=== PATIENT | male | born 1945 | race Caucasian/White ===

== ENCOUNTER 2021-08-20 23:19 | Inpatient (IN) | payer MEDICARE ==
[2021-08-20 23:49] LABS: Blood Gas Oxyhemoglobin 95.5 % (94-97); Blood O2 Saturation 98.5 % (92-98.5)
[2021-08-20] MEDS ORDERED: METHYLPREDNISOLONE 125 MG INJ ONE (23:53)
[2021-08-20] MEDS ORDERED: NA CHLORIDE 0.9% 500 ML ONE (23:59)
--- NOTE | 2021-08-21 00:35 | EDPHYS ---
Physician Documentation [facility] Name: Otf Harry Age: 76 yrs Sex: Male : 1945 Arrival Date: 08/20/2021 Time: 23:19 Bed 2 Private MD: ED Physician Héctor Callejas HPI: 08/21 00:28 This 76 yrs old Male presents to ER via Wheelchair with complaints of Shortness Of kdr Breath. 00:28 The patient has shortness of breath at rest, with light activity. Onset: The kdr symptoms/episode began/occurred suddenly, just prior to arrival. Duration: The symptoms are continuous, and are unchanged since they started. The patient's shortness of breath is aggravated by Movement. Associated signs and symptoms: Pertinent positives: diaphoresis. Severity of symptoms: At their worst the symptoms were mild moderate in the emergency department the symptoms are unchanged. The patient has not experienced similar symptoms in the past. Patient was discharged from [facility] about 10 days ago status post pneumonia/Covid. Daughters present at bedside at time of initial presentation. She indicated that the patient had been doing fine since his discharge from [facility] about 10 days ago. Denies ever giving him a sponge bath and when they rolled onto one side he became abruptly short of breath. Since then he has continued to be short of breath without any relief or significant improvement. Historical: - Allergies: 08/20 23:37 No Known Allergies; kamini - Home Meds: 23:44 Eliquis DVT-PE Treat 30D Start 5 mg (74 tabs) oral DsPk [Active]; amlodipine 10 mg tab kamini 1 tab once daily [Active]; furosemide 20 mg Oral tab 2 tabs once daily [Active]; lisinopril 10 mg Oral tab 1 tab once daily [Active]; levofloxacin 250 mg Oral tab 1 tab once daily [Active]; carvedilol 12.5 mg oral tab 1 tab every 12 hours [Active]; potassium chloride 15 mEq Oral TbTQ 1 tab once daily [Active]; - PMHx: 23:37 Chronic obstructive lung disease; Diabetes mellitus; Cerebrovascular accident; kamini - PSHx: 23:37 Vasectomy; Operative procedure on knee; kamini - Immunization history:: Prior Covid admission, but not vaccinated. - Social history:: Smoking status: Patient reports the use of cigarette tobacco products, denies chronic smoking, but will smoke occasionally. - Family history:: Mother has/had Pneumonia. Father has/had "Something in his lungs from an explosion". - Code Status:: Full code. - History obtained from: daughter. - Unable to obtain history due to: baseline dementia. - Coronavirus screen:: The patient has NOT traveled to [place] in the past 14 days. The patient HAS HAD contact with known and/or suspected case of coronavirus. Pt dc'd from [facility] 10 days ago, having being admitted for Covid. . - Ebola Screening: : Patient negative for fever greater than or equal to 101.5 degrees Fahrenheit, and additional compatible Ebola Virus Disease symptoms Patient denies exposure to infectious person Patient denies travel to an Ebola-affected area in the 21 days before illness onset No symptoms or risks identified at this time. ROS: 08/21 00:28 Constitutional: Negative for fever, chills, and weight loss, Eyes: Negative for injury, kdr pain, redness, and discharge, ENT: Negative for injury, pain, and discharge, Neck: Negative for injury, pain, and swelling, Cardiovascular: Negative for chest pain, palpitations, and edema, Abdomen/GI: Negative for abdominal pain, nausea, vomiting, diarrhea, and constipation, Back: Negative for injury and pain, : Negative for injury, bleeding, discharge, and swelling, MS/Extremity: Negative for injury and deformity, Skin: Negative for injury, rash, and discoloration, Neuro: Negative for headache, weakness, numbness, tingling, and seizure activity. Psych: Negative for depression, anxiety, suicide ideation, homicidal ideation, and hallucinations, Allergy/Immunology: Negative for hives, rash, and allergies, Endocrine: Negative for neck swelling, polydipsia, polyuria, polyphagia, and marked weight changes, Hematologic/Lymphatic: Negative for swollen nodes, abnormal bleeding, and unusual bruising. Respiratory: Positive for dyspnea on exertion, shortness of breath, at rest. Negative for hemoptysis. Exam: 00:28 Constitutional: This is a well developed, well nourished patient who is awake, alert, kdr and in mild distress. Head/Face: Normocephalic, atraumatic. Eyes: Pupils equal round and reactive to light, extra-ocular motions intact. Lids and lashes normal. Conjunctiva and sclera are non-icteric and not injected. Cornea within normal limits. Periorbital areas with no swelling, redness, or edema. Neck: Trachea midline, no thyromegaly or masses palpated, and no cervical lymphadenopathy. Supple, full range of motion without nuchal rigidity, or vertebral point tenderness. No Meningismus. Chest/axilla: Normal chest wall appearance and motion. Nontender with no deformity. No lesions are appreciated. Abdomen/GI: Soft, non-tender, with normal bowel sounds. No distension or tympany. No guarding or rebound. No evidence of tenderness throughout. Back: No spinal tenderness. No costovertebral tenderness. Full range of motion. MS/ Extremity: Pulses equal, no cyanosis. Neurovascular intact. Full, normal range of motion. Neuro: Awake and alert, GCS 15, oriented to person, place, time, and situation. Cranial nerves II-XII grossly intact. Motor strength 5/5 in all extremities. Sensory grossly intact. Cerebellar exam normal. Normal gait. Psych: Awake, alert, with orientation to person, place and time. Behavior, mood, and affect are within normal limits. 00:28 Cardiovascular: Rate: tachycardic, actual rate is 112 bpm, Rhythm: regular, Pulses: no pulse deficits are appreciated, Edema: is not appreciated. 00:28 Respiratory: moderate respiratory distress is noted, Respirations: labored breathing, that is mild, that is moderate, Breath sounds: rales, that are moderate, bronchial sounds, that are mild, + upper airway congestion. Coarse raspy breath sounds bilaterally with overall poor air movement. 02:16 ECG was reviewed by the Attending Physician. kdr Vital Signs: 08/20 23:30 BP 109 / 69; Pulse 111; Resp 40; kamini 23:59 BP 81 / 69; Pulse 105; Resp 34; Weight 71.67 kg; Height 5 ft. 9 in. (175.26 cm); kamini 08/21 00:19 BP 95 / 76; Pulse 101; Resp 29; Pulse Ox 100% ; kamini 00:49 BP 116 / 76; Pulse 102; Resp 34; Pulse Ox 100% ; kamini 01:13 BP 86 / 73; Pulse 105; Resp 34; Pulse Ox 100% ; kamini 03:19 BP 118 / 69; Pulse 82; Resp 20; Pulse Ox 99% ; tw5 08/20 23:59 Body Mass Index 23.33 (71.67 kg, 175.26 cm) kamini MDM: 00:28 Data reviewed: vital signs, nurses notes, lab test result(s), EKG, radiologic studies. kdr Counseling: I had a detailed discussion with the patient and/or guardian regarding: the historical points, exam findings, and any diagnostic results supporting the discharge/admit diagnosis, lab results, radiology results, the need for further work-up and treatment in the hospital. 00:34 Patient medically screened. kdr 08/20 23:25 Order name: BMP la1 08/20 23:25 Order name: Blood Culture Adult (2) la08/20 23:25 Order name: CBC with Diff la08/20 23:25 Order name: CPK la08/20 23:25 Order name: Ckmb la08/20 23:25 Order name: D-Dimer; Complete Time: 02:10 la08/20 23:25 Order name: Hepatic Function; Complete Time: 02:10 la08/20 23:25 Order name: Lipase; Complete Time: 02:10 la08/20 23:25 Order name: Magnesium; Complete Time: 02:10 la08/20 23:25 Order name: NT PRO-BNP; Complete Time: 02:10 la08/20 23:25 Order name: PT-INR; Complete Time: 02:10 la08/20 23:25 Order name: Ptt, Activated; Complete Time: 02:10 la08/20 23:25 Order name: Troponin (emerg Dept Use Only); Complete Time: 02:10 08/20 23:25 Order name: COVID-19 SARS RT PCR (Document "Date of Onset" if Symptomatic); Complete la Time: 04:34 08/20 23:25 Order name: XRAY CXR (1 view) la08/20 23:26 Order name: CRP; Complete Time: 02:10 la08/20 23:26 Order name: Basic Metabolic Panel; Complete Time: 02:10 EDMS 08/20 23:26 Order name: Procalcitonin; Complete Time: 04:34 la08/20 23:26 Order name: Blood Culture EDMI 08/20 23:26 Order name: CBC with Automated Diff; Complete Time: 04:34 EDMS 08/20 23:26 Order name: Creatine Phosphokinase; Complete Time: 02:10 EDMS 08/20 23:26 Order name: CKMB Creatine Kinase MB; Complete Time: 02:10 EDMS 08/20 23:27 Order name: Lactate; Complete Time: 02:10 la1 08/20 23:29 Order name: BIPAP la1 08/20 23:39 Order name: ABG; Complete Time: 00:05 la1 08/21 01:15 Order name: Manual Differential; Complete Time: 04:34 EDMS 08/21 02:10 Order name: CT Chest For PE Angio kdr 08/20 23:25 Order name: EKG; Complete Time: 23:27 la1 08/20 23:25 Order name: Cardiac monitoring; Complete Time: 23:56 la1 08/20 23:25 Order name: EKG - Nurse/Tech; Complete Time: 23:56 la1 08/20 23:25 Order name: IV Saline Lock; Complete Time: 23:56 la1 08/20 23:25 Order name: Labs collected and sent; Complete Time: 23:56 la1 08/20 23:25 Order name: O2 Per Protocol; Complete Time: 23:56 la1 08/20 23:25 Order name: O2 Sat Monitoring; Complete Time: 23:56 la1 EC:16 Rate is 109 beats/min. Rhythm is irregular, Sinus arrythmia with PACs. QRS Hardin is kdr Normal. ID interval is normal. QRS interval is normal. QT interval is normal. Clinical impression: No branch block with pulmonary disease pattern/COPD. Administered Medications: 08/20 23:56 Drug: SOLU-Medrol (methylPrednisoLONE) 125 mg Route: IVP; Site: right antecubital; 08/21 01:50 Follow up: Response: No adverse reaction 00:03 Drug: NS 0.9% 500 ml Route: IV; Rate: bolus; Site: right antecubital; 01:51 Follow up: IV Status: Completed infusion 01:11 Not Given (Hemodynamic Parameters): morphine 2 mg IVP once; RASS on ADMIN: Combtv4, tw5 Very Agttd3, Agttd2, Rstlss1, AlertClm0, Drwsy-1, Lt Sdtn-2, Mod Sdtn-3, Dp Sdtn-4, UnArsble-5 01:14 Drug: NS 0.9% 500 ml Route: IV; Rate: bolus; Site: right antecubital; as6 01:52 Follow up: IV Status: Completed infusion tw5 01:15 Drug: Tylenol 650 mg Route: PO; kamini 01:51 Follow up: Response: No adverse reaction; RASS: Restless (+1) tw5 01:45 Drug: Rocephin (cefTRIAXone) 1 grams {Note: over an hour.} Route: IV; Rate: calculated rate; Site: right antecubital; 02:05 Follow up: Response: No adverse reaction tw 02:06 Follow up: IV Status: Completed infusion tw 02:04 Drug: Zithromax (azithromycin) 500 mg Route: IVPB; Infused Over: 1 hrs; Site: right tw5 antecubital; 03:24 Follow up: IV Status: Completed infusion tw Disposition Summary: 08/21/21 00:34 Hospitalization Ordered Hospitalization Status: Observation kdr Provider: Lester Sher kdr Location: Telemetry/MedSurg (observation) kdr Condition: Fair kdr Problem: an acute exacerbation kdr Symptoms: have improved kdr Bed/Room Type: Standard kdr Room Assignment: 206(08/21/21 03:01) mw Diagnosis - COPD/ Chronic obstructive pulmonary disease with (acute) exacerbation kdr - Other pneumonia, unspecified organism kdr Forms: - Medication Reconciliation Form kdr - SBAR form kdr Signatures: Dispatcher [employer] EDSobeida Kovacs RN RN mw Rittger, Kevin, MD MD kdr Corky Rangel FNP-C [employer]-Riley1 Kim Polanco tw5 Joshua Pierre RN RN as6 Ashley Smith RN RN kamini Corrections: (The following items were deleted from the chart) 03:01 00:34 kdr mw
--- NOTE | 2021-08-21 00:35 | ER ---
Nurse's Notes [facility] Name: Otf Harry Age: 76 yrs Sex: Male : 1945 Arrival Date: 08/20/2021 Time: 23:19 Bed 2 Private MD: Diagnosis: COPD/ Chronic obstructive pulmonary disease with (acute) exacerbation;Other pneumonia, unspecified organism Presentation: 08/20 23:30 Chief complaint: Patient's son or daughter states: Per the pt's daughter,"He has just kamini been discharged from [place]...10 days ago...they said he was over Covid...but I turned him tonight and he got really short of breath...". Coronavirus screen: Client presents with at least one sign or symptom that may indicate coronavirus-19. Standard/surgical mask placed on the client. Provider contacted for isolation considerations. Ebola Screen: Patient negative for fever greater than or equal to 101.5 degrees Fahrenheit, and additional compatible Ebola Virus Disease symptoms Patient denies exposure to infectious person. Patient denies travel to an Ebola-affected area in the 21 days before illness onset. Initial Sepsis Screen: Does the patient meet any 2 criteria? RR > 20 per min. No. Patient's initial sepsis screen is negative. Does the patient have a suspected source of infection? Yes: Productive cough/pneumonia Skin breakdown/wound. 23:30 Method Of Arrival: Wheelchair kamini 23:34 Risk Assessment: Do you want to hurt yourself or someone else? Patient reports no kamini desire to harm self or others. Onset of symptoms was August 20, 2021 at 23:00. Care prior to arrival: None. Activity prior to arrival: confused, Hyperventilating, incontinence. Mechanism of Injury: No Mechanism of Injury. 23:34 Acuity: TIM 2 kamini Triage Assessment: 23:44 General: Appears distressed, unkempt, Behavior is agitated, restless, Smells of kamini Unclean. Pain: Complains of pain in "All over". EENT: Reports Parent/caregiver reports the patient having. Neuro: No deficits noted. Cardiovascular: Rhythm is sinus tachycardia EKG done at 2323. Respiratory: Patient placed on BiPAP: Respiratory Rate: 34. GI: Abdomen is Hernia Last BM. : Incontinent of bowel and bladder. Musculoskeletal: Parent/caregiver report the patient having weakness in left arm and left leg weakness per daughter's report. Injury Description: dressing to right foot. 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 Start 5 mg (74 tabs) oral DsPk [Active]; amlodipine 10 mg tab kamini 1 tab once daily [Active]; furosemide 20 mg Oral tab 2 tabs once daily [Active]; lisinopril 10 mg Oral tab 1 tab once daily [Active]; levofloxacin 250 mg Oral tab 1 tab once daily [Active]; carvedilol 12.5 mg oral tab 1 tab every 12 hours [Active]; potassium chloride 15 mEq Oral TbTQ 1 tab once daily [Active]; - PMHx: 23:37 Chronic obstructive lung disease; Diabetes mellitus; Cerebrovascular accident; kamini - PSHx: 23:37 Vasectomy; Operative procedure on knee; kamini - Immunization history:: Prior Covid admission, but not vaccinated. - Social history:: Smoking status: Patient reports the use of cigarette tobacco products, denies chronic smoking, but will smoke occasionally. - Family history:: Mother has/had Pneumonia. Father has/had "Something in his lungs from an explosion". - Code Status:: Full code. - History obtained from: daughter. - Unable to obtain history due to: baseline dementia. - Coronavirus screen:: The patient has NOT traveled to [place] in the past 14 days. The patient HAS HAD contact with known and/or suspected case of coronavirus. Pt dc'd from [facility] 10 days ago, having being admitted for Covid. . - Ebola Screening: : Patient negative for fever greater than or equal to 101.5 degrees Fahrenheit, and additional compatible Ebola Virus Disease symptoms Patient denies exposure to infectious person Patient denies travel to an Ebola-affected area in the 21 days before illness onset No symptoms or risks identified at this time. Screenin/21 00:18 Abuse screen: Denies threats or abuse. Denies injuries from another. Nutritional kamini screening: No deficits noted. Tuberculosis screening: No symptoms or risk factors identified. Fall Risk Gait- Normal/Bed Rest/Wheelchair (0 pts) Mental Status- Total Kirkpatrick Fall Scale indicates No Risk (0-24 pts). Assessment: 00:18 Respiratory: Patient placed on BiPAP:. kamini 00:21 Respiratory: Airway is patent Respiratory effort is labored, with nasal flaring, Breath kamini sounds are diminished in Diminilshed throughout. Derm: Skin is thin, with poor turgor has skin tears on left elblow Skin is Skin is chaffing to inner thighs and mottling to buttocks and hips. Pt was found to be soiled with stool and not clean. The pt's daughter reports that the "butt cream" was "taking his skin off". Per her report, her nephew was to be "taking care" of the pt, but "that's why we're here". 01:07 GI: kamini 01:07 General: Mirna [phone]. kamini 01:14 Cardiovascular: Rhythm is sinus tachycardia. kamini 03:13 Reassessment: Pt passed impaction that was larger than a baseball and his excoriated tw5 skin, was cleaned. The pt has breakdown to his uncircumcised penis, as well. The pt reports that he "feels better" and is now on 8L O2 and the Bipap has been stopped. Vital Signs: 08/20 23:30 BP 109 / 69; Pulse 111; Resp 40; kamini 23:59 BP 81 / 69; Pulse 105; Resp 34; Weight 71.67 kg; Height 5 ft. 9 in. (175.26 cm); kamini 12/ 00:19 BP 95 / 76; Pulse 101; Resp 29; Pulse Ox 100% ; kamini 00:49 BP 116 / 76; Pulse 102; Resp 34; Pulse Ox 100% ; kamini 01:13 BP 86 / 73; Pulse 105; Resp 34; Pulse Ox 100% ; kamini 03:19 BP 118 / 69; Pulse 82; Resp 20; Pulse Ox 99% ; tw5 12 23:59 Body Mass Index 23.33 (71.67 kg, 175.26 cm) kamini Vitals: 03:13 Cardiac Rhythm Assessment Regular Other HR is 82, now. tw5 ED Course: 08/20 23:19 Patient arrived in ED. bp1 23:20 Kaylynn Schumacher, MIGUEL is Primary Nurse. sm5 23:29 Héctor Callejas MD is Attending Physician. kdr 23:30 Ashley Smith RN is Primary Nurse. kamini 23:37 Triage completed. kamini 23:52 XRAY CXR (1 view) In Process Unspecified. EDMS 23:56 Inserted saline lock: 20 gauge in right antecubital area, using aseptic technique. tw5 Blood collected. 23:59 Arm band placed on. EKG completed in triage. Results shown to . kamini 08/21 00:33 Lester Sher DO is Hospitalizing Provider. kdr 00:50 Lab at bedside for a redraw of labs. kamini 01:16 Patient has correct armband on for positive identification. Bed in low position. Call kamini light in reach. Side rails up X2. Adult w/ patient. rotary drill operator on. Pulse ox on. NIBP on. PO fluids given. Verbal reassurance given. Cleaned of incontinence. 01:18 The pt's daughter left her number with us and has gone home, with her young daughter. kamini 01:18 No provider procedures requiring assistance completed. O2 via Cpap Response to oxygen kamini therapy: Much less restless. 01:48 BMP Sent. tw5 01:48 Blood Culture Adult (2) Sent. tw5 01:48 COVID-19 SARS RT PCR (Document "Date of Onset" if Symptomatic) Sent. tw5 01:48 CBC with Diff Sent. tw5 01:48 CPK Sent. tw5 01:48 Ckmb Sent. tw5 01:48 D-Dimer Sent. tw5 01:48 PT-INR Sent. tw5 01:48 Ptt, Activated Sent. tw5 01:49 Blood Culture Sent. tw5 01:49 Procalcitonin Sent. tw5 01:49 CBC with Automated Diff Sent. tw5 01:50 Lactate Sent. tw5 01:53 Manual Differential Sent. tw5 02:07 Notified the Hospitalist of a critical lab result(s), D dimer 20,865. tw5 02:[address] Respiratory called to accompany the pt, due to the Bipap. tw5 03:13 Patient admitted, IV remains in place. Wound care: located on buttocks and jimi area. tw5 03:13 Report given to to MIGUEL Yap, on 2nd floor. The pt is going to room 206. tw5 Administered Medications: 08/20 23:56 Drug: SOLU-Medrol (methylPrednisoLONE) 125 mg Route: IVP; Site: right antecubital; tw5 08/21 01:50 Follow up: Response: No adverse reaction tw5 00:03 Drug: NS 0.9% 500 ml Route: IV; Rate: bolus; Site: right antecubital; tw5 01:51 Follow up: IV Status: Completed infusion tw 01:11 Not Given (Hemodynamic Parameters): morphine 2 mg IVP once; RASS on ADMIN: Combtv4, tw5 Very Agttd3, Agttd2, Rstlss1, AlertClm0, Drwsy-1, Lt Sdtn-2, Mod Sdtn-3, Dp Sdtn-4, UnArsble-5 01:14 Drug: NS 0.9% 500 ml Route: IV; Rate: bolus; Site: right antecubital; as6 01:52 Follow up: IV Status: Completed infusion tw 01:15 Drug: Tylenol 650 mg Route: PO; kamini 01:51 Follow up: Response: No adverse reaction; RASS: Restless (+1) 01:45 Drug: Rocephin (cefTRIAXone) 1 grams {Note: over an hour.} Route: IV; Rate: calculated rate; Site: right antecubital; 02:05 Follow up: Response: No adverse reaction 02:06 Follow up: IV Status: Completed infusion tw 02:04 Drug: Zithromax (azithromycin) 500 mg Route: IVPB; Infused Over: 1 hrs; Site: right tw5 antecubital; 03:24 Follow up: IV Status: Completed infusion Outcome: 00:34 Decision to Hospitalize by Provider. kdr 03:13 Admitted to Med/surg accompanied by nurse, via stretcher, room 206, with oxygen, Report tw5 called to Marely and pt going to 206 03:13 Condition: stable 03:25 Patient left the ED. tw5 Signatures: Dispatcher [employer] EDMS Héctor Callejas MD MD kdr [place], Brittany bp1 Wood, Tiffany tw5 Joshua Pierre, MIGUEL RIVERA as6 Kaylynn Schumacher RN RN 5 Ashley Smith RN RN kamini
[2021-08-21] MEDS ORDERED: MORPHINE 2 MG/ML SYR ONE (01:04)
[2021-08-21] MEDS ORDERED: ACETAMINOPHEN 325 MG TABLET ONE (01:05)
[2021-08-21 01:12] LABS: Absolute Lymphocytes (CBC) 1.2 K/uL (0.7-4.9); Hematocrit 44.2 % (39.6-49.0); Lymphocytes % 6.5 % (15.3-44.8); MPV 7.1 fL (7.6-11.3); RBC Red Blood Cell Count 4.91 M/uL (4.33-5.43)
[2021-08-21] MEDS ORDERED: NA CHLORIDE 0.9% 500 ML ONE (01:12)
[2021-08-21 01:29] LABS: ALT/SGPT 23 U/L (12-78); AST/SGOT 19 U/L (15-37); Albumin 2.3 g/dL (3.4-5.0); Alkaline Phosphatase 145 U/L (45-117); BUN Blood Urea Nitrogen 20 mg/dL (7-18); Bicarbonate 28 mmol/L (21-32); Bilirubin Direct 0.3 mg/dL (0-0.2); Bilirubin Total 0.7 mg/dL (0.2-1.0); C-Reactive Protein 7.15 mg/L (<3.00); CKMB Creatine Kinase MB 1.2 ng/mL (1.0-3.6); Creatine Phosphokinase 40 U/L (39-308); Glucose Level 252 mg/dL (74-106); Lipase 91 U/L (73-393); Magnesium 2.1 mg/dL (1.8-2.4); NT PRO-BNP 639 pg/mL (<125); Potassium 4.5 mmol/L (3.5-5.1); Protein, Total 6.3 g/dL (6.4-8.2); Sodium Level 137 mmol/L (136-145); Troponin (Emerg Dept Use Only) < 0.02 ng/mL (0.0-0.045)
[2021-08-21] MEDS ORDERED: CEFTRIAXONE 1000 MG/VIAL ONE (01:34)
[2021-08-21] MEDS ORDERED: NA CHLORIDE 0.9% 100 ML ONE (01:35)
[2021-08-21] MEDS ORDERED: AZITHROMYCIN 500 MG INJ IVPB ONE (01:56)
[2021-08-21] MEDS ORDERED: NA CHLORIDE 0.9% 250 ML ONE (01:57)
--- NOTE | 2021-08-21 01:58 | P.HP ---
Certification for Inpatient Patient admitted to: Inpatient With expected LOS: >2 Midnights Patient will require the following post-hospital care: None Practitioner: I am a practitioner with admitting privileges, knowledge of patient current condition, hospital course, and medical plan of care. Services: Services provided to patient in accordance with Admission requirements found in Title 42 Section 412.3 of the Code of Federal Regulations Patient History Date of Service: 08/21/21 Primary Care Provider: Dr. Tejada Reason for admission: Pneumonia History of Present Illness: 76-year-old male with history of diabetes mellitus type 2,, COPD, history of CVA presents emergency department for shortness of breath. Family reports that patient was [facility] 10 days ago after being treated for Covid pneumonia, home medications reviewed include Eliquis as well as Levaquin. Patient is very appropriate poor historian and family not available for interview at this time, attempted to call as well but nobody answered. Patient arrived to the emergency department dyspneic, tachypneic and hypoxic with saturations in the mid 80s. Patient was placed on BiPAP and evaluated in the emergency department labs are significant for white blood cell count 18.9 with left shift glucose 252 C- reactive protein 7.15 BNP 639 Covid test is pending chest x-ray appears to demonstrate a right lower lobe pneumonia. Patient given IV Rocephin and Zithromax in the emergency department, this is believed to be more of a bacterial pneumonia than acute Covid, will admit for further evaluation and management. Allergies No Known Allergies Allergy (Unverified 08/21/21 03:08) Home Medications: Amlodipine [Norvasc] 10 mg PO DAILY 08/21/21 Apixaban [Eliquis] 5 mg PO DAILY 08/21/21 Carvedilol [Coreg] 12.5 mg PO BID 08/21/21 Furosemide 40 mg PO DAILY 08/21/21 Lisinopril [Zestril] 10 mg PO DAILY 08/21/21 Potassium Chloride [Klor-Con M15] 15 meq PO DAILY 08/21/21 levoFLOXacin [Levofloxacin] 250 mg PO DAILY 08/21/21 - Past Medical/Surgical History -: COPD -: Diabetes mellitus type 2 -: History of CVA Past Surgical History: Unable to obtain Psychosocial/ Personal History: Per report patient lives with a nephew who attempts to help take care of him but is having difficulty with this. - Family History Father History Unknown: Yes - Social History Smoking Status: Current every day smoker Counseled patient to stop smoking for: less than 10 minutes Smoking therapy provided: No (Patient declined) Place of Residence: Home Review of Systems 10-point ROS is otherwise unremarkable Respiratory: Cough, Shortness of Breath Physical Examination - Physical Exam General: Alert, In no apparent distress, Oriented x2 HEENT: Atraumatic, PERRLA, Mucous membr. moist/pink, EOMI, Sclerae nonicteric Neck: Supple, 2+ carotid pulse no bruit, No LAD, Without JVD or thyroid abnormality Respiratory: Diminished, Crackles/rales, Rhonchi/gurgles, Other (On BiPAP) Cardiovascular: Regular rate/rhythm, Normal S1 S2 Capillary refill: <2 Seconds Gastrointestinal: Normal bowel sounds, No tenderness Musculoskeletal: No tenderness Integumentary: No rashes Neurological: Normal speech, Normal strength at 5/5 x4 extr, Normal tone, Normal affect Lymphatics: No axilla or inguinal lymphadenopathy - Studies Laboratory Data (last 24 hrs) 08/21/21 00:56: WBC 18.90 H, Hgb 14.3, Hct 44.2, Plt Count 374 08/21/21 00:56: Sodium 137, Potassium 4.5, BUN 20 H, Creatinine 0.88, Glucose 252 H, Magnesium 2.1, Total Bilirubin 0.7, AST 19, ALT 23, Alkaline Phosphatase 145 H, Lipase 91 Assessment and Plan - Plan Assessment: Acute hypoxic respiratory failure secondary to right lower lobe pneumonia complicated with history of COPD Diabetes type 2 with hyperglycemia Hypertension Tobacco abuse History of CVA Plan: Acute hypoxic respiratory failure secondary to right lower lobe pneumonia complicated with history of COPD: Per report patient was discharged from [facility] approximate 10 days ago for Covid pneumonia, patient appears to have been prescribed Levaquin unsure if he was taking this on chest x-ray appears to have right lower lobe pneumonia with 18,000 white count believe this is more related to bacterial pneumonia than Covid as CRP is rather low. We will continue with IV antibiotics Rocephin/Zithromax, obtain sputum culture. Pulmonology consulted continue with incentive spirometry. Blood cultures were obtained in the emergency department will continue with IV steroids as well, as needed nebulizer treatments. Covid test negative at this time. Patient also lives at home with a nephew, there are concerns about his living situation in the family but they were unavailable for interview at this time. We will need to discuss further with him, case management social worker consult to be placed as well for possible skilled placement. Diabetes type 2 with hyperglycemia: ACH is Accu-Chek, sliding scale insulin therapy. A1c with morning labs. Hypertension: Blood pressure borderline at this time will hold off on antihypertensive agents. Restart as appropriate Tobacco abuse: Patient admits to smoking but cannot tell me how much, counseled on need for tobacco cessation. History of CVA: Obtain and continue medications, stable at this time. DVT PPX: Continue Eliquis Code status: Full code Discharge Plan: Home Plan to discharge in: Greater than 2 days - Advance Directives Does patient have a Living Will: No Does patient have a Durable POA for Healthcare: No - Code Status/Comfort Care Code Status Assessed: Yes (Full code) Critical Care: No Time Spent Managing Pts Care (In Minutes): 55
[2021-08-21 02:05] LABS: Protime INR 1.16
[2021-08-21 02:12] LABS: Blood Morphology Comment NOT SEEN (NOT SEEN); Platelet Estimate ADEQ
[2021-08-21] MEDS ORDERED: ONDANSETRON 4 MG/2 ML VIAL IV PRN (03:29)
[2021-08-21 04:29] VITALS: BMI 24.2
--- NOTE | 2021-08-21 06:02 | P.PN ---
Subjective Date of Service: 08/21/21 Primary Care Provider: Dr. Tejada Chief Complaint: Pneumonia Subjective: Other (Patient stable at this time. Patient recently hospitalized for Covid. Patient with underlying COPD.) Physical Examination - Vital Signs Temperature: 97.5 F Blood Pressure: 114/57 Pulse: 82 Respirations: 20 Pulse Ox (%): 94 - Studies Laboratory Data (last 24 hrs) 08/21/21 00:56: PT 13.4 H, INR 1.16, APTT 30.6 08/21/21 00:56: WBC 18.90 H, Hgb 14.3, Hct 44.2, Plt Count 374 08/21/21 00:56: Sodium 137, Potassium 4.5, BUN 20 H, Creatinine 0.88, Glucose 252 H, Magnesium 2.1, Total Bilirubin 0.7, AST 19, ALT 23, Alkaline Phosphatase 145 H, Lipase 91 Assessment & Plan Discharge Plan: Other (Home versus skilled placement) Plan to discharge in: 72 Hours Physician Review Additional Text: COVID: Negative CT chest: No evidence of pulmonary embolism or/and significant thoracic aortic dissection. Probable atelectasis posterior segment left lower lobe with elevation of left hemidiaphragm Old granulomatous disease Coronary artery calcification and arthrosclerotic disease of the thoracic aorta. Initial CXR: COMPARISON: none FINDINGS: Mild left basilar atelectasis Lungs are mildly to moderately hyperaerated. The heart is normal size IMPRESSION: COPD Physical exam: General: Alert, In no apparent distress, Oriented x2 HEENT: Neck supple Respiratory: Wheezes bilateral. Currently on oxygen at 4-5 L. Cardiovascular: Regular rate/rhythm, Normal S1 S2 Capillary refill: <2 Seconds Gastrointestinal: Normal bowel sounds, No tenderness Musculoskeletal: No tenderness Integumentary: No rashes Neurological: Normal speech, Normal strength at 5/5 x4 extr, Normal tone, Normal affect Lymphatics: No axilla or inguinal lymphadenopathy Assessment: Acute hypoxic respiratory failure with hypoxia likely COPD exacerbation with possible left lower lobe pneumonia complicated with recent history of Covid Diabetes type 2 with hyperglycemia Hypertension Tobacco abuse History of CVA Plan: Acute hypoxic respiratory failure with hypoxia likely COPD exacerbation with possible left lower lobe pneumonia complicated with recent history of Covid: Procalcitonin slightly elevated. Continue with Rocephin and Zithromax to cover for infectious cause. CT scan shows no evidence of pulmonary embolism. Atelectasis to the left lower lobe noted. Patient recently discharged from [facility] for Covid 10 days ago. Covid test negative at this time. Encourage incentive spirometer. Continue COPD medication including s teroid. Physical therapy to assess ambulation. Patient lives at home with nephew. Family unavailable but it appears that patient may require more help. Consider home health and physical therapy versus skilled placement. Social work to be consulted to help with this. Diabetes type 2 with hyperglycemia: We will check A1c. Continue Accu-Cheks and sliding scale. Hypertension: Blood pressure low at this time. We will hold his medications including amlodipine, carvedilol, and lisinopril. We will also hold his Lasix as well. Tobacco abuse: Continue to provide tobacco cessation. History of CVA: Continue aspirin. No need for Eliquis at this time. Will change to Lovenox. DVT PPX: Lovenox Code status: Full code Advance care planning-30 minutes: We will need to discuss further with family. Consider home health versus skilled placement. Consult physical therapy to assess ambulation. Time Spent Managing Pts Care (In Minutes): 55
--- NOTE | 2021-08-21 07:34 | EKG ---
Test Date: 2021-08-20 Test Time: 23:35:37 Launderette Attendant: TW MEASUREMENT RESULTS: Intervals: Rate: 109 [place]: 148 QRSD: 108 QT: 350 QTc: 471 [place]: P: 89 [place]: 148 QRS: 175 T: 53 INTERPRETIVE STATEMENTS: Sinus tachycardia with premature atrial complexes Pulmonary disease pattern Right bundle branch block Abnormal ECG No previous ECG available for comparison Electronically Signed On 08-21-21 07:34:12 [employer] SHEAR[employer] by Alfred Rick
[2021-08-21] MEDS: ARFORMOTEROL TARTRATE 15 MCG/2 ML VIAL.NEB NEB SCH ×2 (07:59→20:27)
[2021-08-21] MEDS: IPRATROPIUM BROM 0.5MG/2.5ML NEB PRN ×2 (07:59→20:27)
[2021-08-21] MEDS: ALBUTEROL 2.5 MG/3 ML NEB SOL NEB PRN (07:59)
--- NOTE | 2021-08-21 08:30 | RAD REPORT ---
[facility]51 pm CLINICAL HISTORY: Shortness breath COMPARISON: none FINDINGS: Mild left basilar atelectasis Lungs are mildly to moderately hyperaerated. The heart is normal size IMPRESSION: COPD
[2021-08-21] MEDS ORDERED: APIXABAN 5 MG TABLET PO SCH (09:00)
[2021-08-21] MEDS ORDERED: DULERA 200/5 (MOMETASONE/FORMOTEROL) INHALER IH SCH (09:00)
[2021-08-21] MEDS: METHYLPREDNISOLONE 40 MG INJ IV SCH ×2 (09:44→16:48)
[2021-08-21] MEDS: INSULIN -REGULAR HUMAN 50 UNIT/0.5 ML ML SQ SCH ×4 (09:45→22:13)
[2021-08-21] MEDS: ACETAMINOPHEN 500 MG TAB PO PRN ×2 (11:21→18:58)
[2021-08-21] MEDS: LACTOBACILLUS/ACIDOPHILUS TAB PO SCH ×2 (14:13→20:41)
--- NOTE | 2021-08-21 14:49 | RAD REPORT ---
EXAM DESCRIPTION: CT - Chest For Pe Angio - 08/21/2021 6:42 am CLINICAL HISTORY: 76 years, Male, Cough;Congestion COMPARISON: None. TECHNIQUE: Multiple transaxial tomograms of the chest were obtained from the lung apices through the lung bases utilizing 2 mm slice thickness at 2 mm interval reconstruction after the administration o f large bolus of IV contrast at a rate of 4.0 cc per second for complete opacification of the pulmona ry arteries. Subsequent 3-D maximum intensity projection images were generated in the coronal and sagittal plane f or review. This exam was performed according to our departmental dose-optimization protocol, which includes auto mated exposure control, adjustment of the mA and/or kV according to patient size and/or use of iterat jc reconstruction technique. FINDINGS: Several images are compromised by breathing motion artifact. Calcified granuloma within th e right upper lobe. No significant focal areas of calcification. Probable atelectasis posterior segme nt left lower lobe with elevation of the left hemidiaphragm. The trachea mainstem bronchus demonstrate to be normal. There is no significant pericardial or pleura l effusions. The thoracic aorta demonstrate intimal aortic arch calcification. There is no evidence for significan t thoracic aortic dissection and/or aneurysm. The heart is normal in size. No evidence for right vent ricular strain. There are coronary artery calcifications. There is no significant mediastinal and/or hilar lymphadenopathy. The axillary regions demonstrate to be clear. Pulmonary arteries demonstrate to be normal, no intraluminal defect are seen that would suggest pulmo nary embolus. The bone windows demonstrate no significant skeletal lesions. The visualized portions of the upper abdomen demonstrate to be unremarkable. IMPRESSION: No evidence for pulmonary embolism and/or significant thoracic aortic dissection. Probable atelectasis posterior segment left lower lobe with elevation of the left hemidiaphragm. Old granulomatous disease. Coronary artery calcifications and atherosclerotic disease of the thoracic aorta. Electronically signed by: Nahum Olson MD 08/21/2021 4:01 AM DISTRICT AGENT Due to temporary technical issues with the PACS/Fluency reporting system, reports are being signed by the in house radiologists without review as a courtesy to insure prompt reporting. The interpreting radiologist is fully responsible for the content of the report.
[2021-08-21] MEDS: ENOXAPARIN 40 MG/0.4 ML SQ SCH (16:48)
[2021-08-21] MEDS: NYSTATIN PWDR 100000 UNIT/GM TOP SCH (16:48)
[2021-08-21 18:24] LABS: C.diff Antigen/Toxin Ag neg : Tox neg (NEG : NEG)
[2021-08-21] MEDS ORDERED: TRAMADOL HCL 50 MG TAB PO PRN (19:53)
[2021-08-21] MEDS: TRAMADOL HCL 50 MG TAB PO PRN (20:41)
[2021-08-21] MEDS ORDERED: CEFTRIAXONE 1,000 MG in NA CHLORIDE 0.9% 50 ML IVPB SCH (21:00)
[2021-08-21] MEDS ORDERED: AZITHROMYCIN IV 500 MG in NA CHLORIDE 0.9% 250 ML IVPB SCH (21:00)
[2021-08-21] MEDS ORDERED: MORPHINE 2 MG/ML SYR IV PRN (21:56)
[2021-08-22] MEDS: METHYLPREDNISOLONE 40 MG INJ IV SCH ×2 (03:02→09:28)
[2021-08-22] MEDS: TRAMADOL HCL 50 MG TAB PO PRN (03:03)
[2021-08-22 04:58] LABS: Absolute Lymphocytes (CBC) 0.9 K/uL (0.7-4.9); Lymphocytes % 9.3 % (15.3-44.8); MPV 7.1 fL (7.6-11.3); RBC Red Blood Cell Count 3.66 M/uL (4.33-5.43)
[2021-08-22 05:22] LABS: ALT/SGPT 22 U/L (12-78); AST/SGOT 14 U/L (15-37); Alkaline Phosphatase 104 U/L (45-117); BUN Blood Urea Nitrogen 24 mg/dL (7-18); Bicarbonate 27 mmol/L (21-32); Bilirubin Total 0.4 mg/dL (0.2-1.0); Glucose Level 208 mg/dL (74-106); HDL Cholesterol 39 mg/dL (40-60); LDL Cholesterol, Calculated 139 (<130); Magnesium 2.2 mg/dL (1.8-2.4); Potassium 4.3 mmol/L (3.5-5.1); Protein, Total 5.1 g/dL (6.4-8.2); Sodium Level 136 mmol/L (136-145); Thyroid Stimulating Hormone 0.511 uIU/mL (0.360-3.740)
--- NOTE | 2021-08-22 05:55 | P.PN ---
Subjective Date of Service: 08/22/21 Primary Care Provider: Dr. Tejada Chief Complaint: Pneumonia Subjective: Improving, Doing well Physical Examination - Vital Signs Temperature: 98.4 F Blood Pressure: 115/53 Pulse: 92 Respirations: 17 Pulse Ox (%): 95 - Studies Microbiology Data (last 24 hrs): 08/21/21 00:56 Blood - Blood Anaerobic Blood Culture - Final Assessment & Plan Discharge Plan: Other (jail facility) Plan to discharge in: 48 Hours Physician Review Additional Text: COVID: Negative CT chest: No evidence of pulmonary embolism or/and significant thoracic aortic dissection. Probable atelectasis posterior segment left lower lobe with elevation of left hemidiaphragm Old granulomatous disease Coronary artery calcification and arthrosclerotic disease of the thoracic aorta. Initial CXR: COMPARISON: none FINDINGS: Mild left basilar atelectasis Lungs are mildly to moderately hyperaerated. The heart is normal size IMPRESSION: COPD Physical exam: General: Alert, In no apparent distress, Oriented x2 HEENT: Neck supple Respiratory: Breathing improved. Currently on 2 L per nasal cannula. Cardiovascular: Regular rate/rhythm, Normal S1 S2 Capillary refill: <2 Seconds Gastrointestinal: Normal bowel sounds, No tenderness Musculoskeletal: No tenderness Integumentary: No rashes Neurological: Normal speech, Normal strength at 5/5 x4 extr, Normal tone, Normal affect Lymphatics: No axilla or inguinal lymphadenopathy Assessment: Acute hypoxic respiratory failure with hypoxia likely COPD exacerbation with possible left lower lobe pneumonia complicated with recent history of Covid Diabetes type 2 with hyperglycemia Hypertension Tobacco abuse History of CVA Hyperlipidemia Fungal dermatitis Plan: Acute hypoxic respiratory failure with hypoxia likely COPD exacerbation with possible left lower lobe pneumonia complicated with recent history of Covid: Patient has improved. Will transition IV Solu-Medrol to prednisone 20 mg 1 pill twice daily then taper. We will also transition off IV Zithromax and Rocephin to Augmentin twice daily for 7 days. Will provide lactobacillus. Nurses reported some diarrhea. C. difficile culture negative. Will provide medication for diarrhea. Patient stable on 2 L per nasal cannula. Patient will likely require chronic O2. Encourage incentive spirometer. Continue COPD medication. Discontinue IV fluids. We will continue to monitor closely. Social work spoke to family yesterday. Family is pursuing skilled placement for the patient. Await approval. Continue physical therapy today. Left message with daughter. Diabetes type 2 with hyperglycemia: Hemoglobin A1c 7.3. Patient appears to not take any medication at home. Will start Metformin. Continue Accu-Cheks and sliding scale. Hypertension: Blood pressure remains stable off medication. Continue to hold his medications of amlodipine, carvedilol, and lisinopril. We will also hold his Lasix as well. Will need to verify home medication. Tobacco abuse: Continue to provide tobacco cessation. History of CVA: Continue aspirin and folic acid. Continue Lovenox. Hyperlipidemia: LDL 139: We will start Lipitor 10 mg daily Fungal dermatitis: Nurse reported some irritation to the groin area. Likely fungal dermatitis. Will continue with nystatin powder DVT PPX: Lovenox Code status: Full code Advance care planning-30 minutes: Left message with daughter concerning plan of care and to address advanced directives. Social work spoke to daughter yesterday. Plan is for skilled placement. Anticipate improvement over the next several days. Time Spent Managing Pts Care (In Minutes): 55
--- NOTE | 2021-08-22 08:37 | RAD REPORT ---
EXAM DESCRIPTION: RAD - Chest Single View - 08/22/2021 6:03 am CLINICAL HISTORY: follow up pneumonia Chest pain. COMPARISON: Chest Single View dated 08/20/2021; Chest For Pe Angio dated 08/21/2021 FINDINGS: Portable technique limits examination quality. Left lung base infiltrate is present with a small left pleural effusion most compatible with left morris g base pneumonia. This appears progressive since the comparative study. The heart is normal in size. No displaced fractures. IMPRESSION: Mild left lung base pneumonia/infiltrate with small left pleural effusion.
[2021-08-22] MEDS: NYSTATIN PWDR 100000 UNIT/GM TOP SCH ×2 (09:00→20:18)
[2021-08-22] MEDS: ALBUTEROL 2.5 MG/3 ML NEB SOL NEB PRN ×2 (09:10→20:48)
[2021-08-22] MEDS: IPRATROPIUM BROM 0.5MG/2.5ML NEB PRN ×2 (09:10→20:00)
[2021-08-22] MEDS: ARFORMOTEROL TARTRATE 15 MCG/2 ML VIAL.NEB NEB SCH ×2 (09:10→20:00)
[2021-08-22] MEDS ORDERED: LOPERAMIDE HCL 2 MG CAPSULE PO PRN (09:14)
[2021-08-22] MEDS: INSULIN -REGULAR HUMAN 50 UNIT/0.5 ML ML SQ SCH ×4 (09:28→20:18)
[2021-08-22] MEDS: LACTOBACILLUS/ACIDOPHILUS TAB PO SCH ×3 (09:28→20:17)
[2021-08-22] MEDS: METFORMIN HCL 500 MG TAB PO SCH (16:26)
[2021-08-22] MEDS: ENOXAPARIN 40 MG/0.4 ML SQ SCH (16:26)
[2021-08-22] MEDS: ATORVASTATIN 10 MG TAB PO SCH (20:17)
[2021-08-22] MEDS: predniSONE 20 MG TAB PO SCH (20:18)
[2021-08-22] MEDS: AMOX/K CLAV 875 MG TAB PO SCH (20:18)
[2021-08-22] MEDS ORDERED: AMOX/K CLAV 500 MG TAB PO SCH (21:00)
[2021-08-22] MEDS: JUVEN PACKET PO SCH (21:25)
[2021-08-23 05:50] LABS: Absolute Lymphocytes (CBC) 0.8 K/uL (0.7-4.9); Hematocrit 32.9 % (39.6-49.0); Lymphocytes % 9.3 % (15.3-44.8); MPV 6.9 fL (7.6-11.3); RBC Red Blood Cell Count 3.65 M/uL (4.33-5.43)
--- NOTE | 2021-08-23 05:54 | P.PN ---
Subjective Date of Service: 08/23/21 Primary Care Provider: Dr. Tejada Chief Complaint: Pneumonia Subjective: Doing well Physical Examination - Vital Signs Temperature: 97.9 F Blood Pressure: 151/73 Pulse: 70 Respirations: 18 Pulse Ox (%): 98 - Studies Microbiology Data (last 24 hrs): 08/21/21 00:56 Blood - Blood Anaerobic Blood Culture - Final Assessment & Plan Discharge Plan: Other (SNF) Plan to discharge in: 24 Hours Physician Review Additional Text: COVID: Negative CT chest: No evidence of pulmonary embolism or/and significant thoracic aortic dissection. Probable atelectasis posterior segment left lower lobe with elevation of left hemidiaphragm Old granulomatous disease Coronary artery calcification and arthrosclerotic disease of the thoracic aorta. Initial CXR: COMPARISON: none FINDINGS: Mild left basilar atelectasis Lungs are mildly to moderately hyperaerated. The heart is normal size IMPRESSION: COPD Follow up CXR 08/22/2021: COMPARISON: Chest Single View dated 08/20/2021; Chest For Pe Angio dated 08/21/2021 FINDINGS: Portable technique limits examination quality. Left lung base infiltrate is present with a small left pleural effusion most compatible with left lung base pneumonia. This appears progressive since the comparative study. The heart is normal in size. No displaced fractures. IMPRESSION: Mild left lung base pneumonia/infiltrate with small left pleural effusion. Physical exam: General: Alert, In no apparent distress, Oriented x2 HEENT: Neck supple Respiratory: Breathing improved. Currently on 2 L per nasal cannula. Cardiovascular: Regular rate/rhythm, Normal S1 S2 Capillary refill: <2 Seconds Gastrointestinal: Normal bowel sounds, No tenderness Musculoskeletal: No tenderness Integumentary: No rashes Neurological: Normal speech, Normal strength at 5/5 x4 extr, Normal tone, Normal affect Lymphatics: No axilla or inguinal lymphadenopathy Assessment: Acute hypoxic respiratory failure with hypoxia likely COPD exacerbation with possible left lower lobe pneumonia complicated with recent history of Covid Diabetes type 2 with hyperglycemia Hypertension Tobacco abuse History of CVA Hyperlipidemia Fungal dermatitis Plan: Acute hypoxic respiratory failure with hypoxia likely COPD exacerbation with left lower lobe pneumonia and small pleural effusion left complicated with recent history of Covid: Patient overall stable. Continue prednisone. Continue Augmentin. Patient on lactobacillus. Overall improved. at bedside.. C. difficile culture negative. Will provide medication for diarrhea. Patient stable on 2 L per nasal cannula. Patient will likely require chronic O2. Encourage incentive spirometer. Encourage ambulation with physical therapy. Continue COPD medication. Will start low-dose Lasix 20 mg. Spoke with daughter yesterday. Family desires skilled placement for the patient. We will continue to pursue skilled placement. Diabetes type 2 with hyperglycemia: Hemoglobin A1c 7.3. Patient appears to not take any medication at home. Continue Metformin. Continue Accu-Cheks and sliding scale. Hypertension: Blood pressures stable but starting to increase. His medications were held upon admission including Lasix. Patient previously on amlodipine, carvedilol and lisinopril. Will start low-dose lisinopril at this time. Will monitor and adjust medication. Tobacco abuse: Continue to provide tobacco cessation. History of CVA: Continue aspirin and folic acid. Continue Lovenox. Hyperlipidemia: LDL 139: Continue Lipitor 10 mg daily Fungal dermatitis: Nurse reported some irritation to the groin area. Likely fungal dermatitis. Will continue with nystatin powder DVT PPX: Lovenox Code status: Full code Advance care planning-30 minutes: Spoke with daughter at length. Continue to pursue skilled placement. Time Spent Managing Pts Care (In Minutes): 55
[2021-08-23 06:18] LABS: ALT/SGPT 27 U/L (12-78); AST/SGOT 19 U/L (15-37); Albumin 2.1 g/dL (3.4-5.0); Alkaline Phosphatase 90 U/L (45-117); BUN Blood Urea Nitrogen 16 mg/dL (7-18); Bicarbonate 27 mmol/L (21-32); Bilirubin Total 0.6 mg/dL (0.2-1.0); C-Reactive Protein 4.57 mg/L (<3.00); Glucose Level 173 mg/dL (74-106); Magnesium 2.1 mg/dL (1.8-2.4); Potassium 4.3 mmol/L (3.5-5.1); Protein, Total 5.4 g/dL (6.4-8.2); Sodium Level 137 mmol/L (136-145)
[2021-08-23] MEDS: ARFORMOTEROL TARTRATE 15 MCG/2 ML VIAL.NEB NEB SCH ×2 (07:18→20:05)
[2021-08-23] MEDS: INSULIN -REGULAR HUMAN 50 UNIT/0.5 ML ML SQ SCH ×4 (07:30→20:32)
[2021-08-23] MEDS: JUVEN PACKET PO SCH ×2 (08:33→20:30)
[2021-08-23] MEDS: NYSTATIN PWDR 100000 UNIT/GM TOP SCH ×2 (08:34→20:30)
[2021-08-23] MEDS: predniSONE 20 MG TAB PO SCH ×2 (08:41→20:30)
[2021-08-23] MEDS: AMOX/K CLAV 875 MG TAB PO SCH ×2 (08:41→20:29)
[2021-08-23] MEDS: METFORMIN HCL 500 MG TAB PO SCH ×2 (08:41→16:49)
[2021-08-23] MEDS: LACTOBACILLUS/ACIDOPHILUS TAB PO SCH ×3 (08:41→20:30)
[2021-08-23] MEDS: FUROSEMIDE 20 MG TABLET PO SCH (10:58)
[2021-08-23] MEDS: ENOXAPARIN 40 MG/0.4 ML SQ SCH (16:49)
[2021-08-23] MEDS: TRAMADOL HCL 50 MG TAB PO PRN (16:50)
[2021-08-23] MEDS: IPRATROPIUM BROM 0.5MG/2.5ML NEB PRN (20:05)
[2021-08-23] MEDS: ATORVASTATIN 10 MG TAB PO SCH (20:30)
--- NOTE | 2021-08-24 05:55 | P.PN ---
Subjective Date of Service: 08/24/21 Primary Care Provider: Dr. Tejada Chief Complaint: Pneumonia Subjective: Improving, Doing well Physical Examination - Vital Signs Temperature: 97.2 F Blood Pressure: 151/65 Pulse: 71 Respirations: 16 Pulse Ox (%): 95 Assessment & Plan Discharge Plan: Other ([facility] facility) Plan to discharge in: 48 Hours Physician Review Additional Text: COVID: Negative CT chest: No evidence of pulmonary embolism or/and significant thoracic aortic dissection. Probable atelectasis posterior segment left lower lobe with elevation of left hemidiaphragm Old granulomatous disease Coronary artery calcification and arthrosclerotic disease of the thoracic aorta. Initial CXR: COMPARISON: none FINDINGS: Mild left basilar atelectasis Lungs are mildly to moderately hyperaerated. The heart is normal size IMPRESSION: COPD Follow up CXR 08/22/2021: COMPARISON: Chest Single View dated 08/20/2021; Chest For Pe Angio dated 08/21/2021 FINDINGS: Portable technique limits examination quality. Left lung base infiltrate is present with a small left pleural effusion most compatible with left lung base pneumonia. This appears progressive since the comparative study. The heart is normal in size. No displaced fractures. IMPRESSION: Mild left lung base pneumonia/infiltrate with small left pleural effusion. Physical exam: General: Alert, In no apparent distress, Oriented x2 HEENT: Neck supple Respiratory: Breathing improved. Currently on 2 L per nasal cannula. Cardiovascular: Regular rate/rhythm, Normal S1 S2 Capillary refill: <2 Seconds Gastrointestinal: Normal bowel sounds, No tenderness Musculoskeletal: No tenderness Integumentary: No rashes Neurological: Normal speech, Normal strength at 5/5 x4 extr, Normal tone, Normal affect Lymphatics: No axilla or inguinal lymphadenopathy Assessment: Acute hypoxic respiratory failure with hypoxia likely COPD exacerbation with possible left lower lobe pneumonia complicated with recent history of Covid Diabetes type 2 with hyperglycemia Hypertension Tobacco abuse History of CVA Hyperlipidemia Fungal dermatitis Plan: Acute hypoxic respiratory failure with hypoxia likely COPD exacerbation with left lower lobe pneumonia and small pleural effusion left complicated with recent history of Covid: Patient overall stable. No changes noted. at bedside. Continue prednisone. Continue Augmentin. Patient on lactobacillus. Overall improved. at bedside.. C. difficile culture negative. Will provide medication for diarrhea. Patient stable on 2 L per nasal cannula. Patient will likely require chronic O2. Encourage incentive spirometer. Encourage ambulation with physical therapy. Continue COPD medication. Continue Lasix 20 mg. Spoke with . agrees with skilled placement. Social work to help with this. Diabetes type 2 with hyperglycemia: Hemoglobin A1c 7.3. Patient appears to not take any medication at home. Continue Metformin. Continue Accu-Cheks and slid ing scale. Hypertension: Blood pressure improved. His medications were held upon admission including Lasix. Patient previously on amlodipine, carvedilol and lisinopril. Low-dose lisinopril added yesterday. Blood pressure improved.. Will monitor and adjust medication. Tobacco abuse: Continue to provide tobacco cessation. History of CVA: Continue aspirin and folic acid. Continue Lovenox. Hyperlipidemia: LDL 139: Continue Lipitor 10 mg daily Fungal dermatitis: Nurse reported some irritation to the groin area. Likely fungal dermatitis. Will continue with nystatin powder DVT PPX: Lovenox Code status: Full code Advance care planning-30 minutes: Spoke with at length. Spoke with daughter yesterday. Continue to pursue skilled placement. Social work to help with this. Await approval for skilled placement. Time Spent Managing Pts Care (In Minutes): 55
[2021-08-24 06:20] LABS: Absolute Lymphocytes (CBC) 0.9 K/uL (0.7-4.9); Lymphocytes % 12.4 % (15.3-44.8); MPV 6.8 fL (7.6-11.3); RBC Red Blood Cell Count 3.89 M/uL (4.33-5.43)
[2021-08-24 06:38] LABS: ALT/SGPT 45 U/L (12-78); AST/SGOT 33 U/L (15-37); Albumin 2.3 g/dL (3.4-5.0); Alkaline Phosphatase 89 U/L (45-117); BUN Blood Urea Nitrogen 16 mg/dL (7-18); Bicarbonate 28 mmol/L (21-32); Bilirubin Total 0.7 mg/dL (0.2-1.0); Glucose Level 146 mg/dL (74-106); Magnesium 1.9 mg/dL (1.8-2.4); Protein, Total 5.4 g/dL (6.4-8.2); Sodium Level 136 mmol/L (136-145)
[2021-08-24 06:43] LABS: C-Reactive Protein < 2.90 mg/L (<3.00)
--- NOTE | 2021-08-24 07:16 | RAD REPORT ---
EXAM DESCRIPTION: RAD - Chest Single View - 08/24/2021 5:47 am CLINICAL HISTORY: Follow-up pneumonia and pleural effusion COMPARISON: Chest Single View dated 08/22/2021; Chest Single View dated 08/20/2021; Chest For Pe Ang io dated 08/21/2021 FINDINGS: Lines: None. Lungs: Left basilar airspace disease which is similar to 08/22/2021. Pleural: No significant pleural effusions or pneumothorax. Cardiac: The heart size is within normal limits. Bones: No acute fractures. Other: Atherosclerosis. IMPRESSION: Similar mild left basilar airspace opacities compared with 08/22/2021. This may reflect atelectasis as opposed to pneumonia.
[2021-08-24] MEDS: INSULIN -REGULAR HUMAN 50 UNIT/0.5 ML ML SQ SCH ×4 (07:30→21:23)
[2021-08-24] MEDS: ARFORMOTEROL TARTRATE 15 MCG/2 ML VIAL.NEB NEB SCH ×2 (08:25→20:20)
[2021-08-24] MEDS: JUVEN PACKET PO SCH ×2 (09:00→21:00)
[2021-08-24] MEDS ORDERED: lisinopriL 5 MG TAB PO SCH (09:00)
[2021-08-24] MEDS: NYSTATIN PWDR 100000 UNIT/GM TOP SCH ×2 (09:00→21:00)
[2021-08-24] MEDS: AMOX/K CLAV 875 MG TAB PO SCH ×2 (09:37→21:22)
[2021-08-24] MEDS: LACTOBACILLUS/ACIDOPHILUS TAB PO SCH ×3 (09:37→21:22)
[2021-08-24] MEDS: predniSONE 20 MG TAB PO SCH ×2 (09:37→21:22)
[2021-08-24] MEDS: FUROSEMIDE 20 MG TABLET PO SCH (09:38)
[2021-08-24] MEDS: METFORMIN HCL 500 MG TAB PO SCH ×2 (09:38→16:48)
[2021-08-24] MEDS: TRAMADOL HCL 50 MG TAB PO PRN (11:56)
[2021-08-24] MEDS: ENOXAPARIN 40 MG/0.4 ML SQ SCH (16:48)
[2021-08-24] MEDS: IPRATROPIUM BROM 0.5MG/2.5ML NEB PRN (20:20)
[2021-08-24] MEDS: ATORVASTATIN 10 MG TAB PO SCH (21:22)
--- NOTE | 2021-08-25 05:46 | P.PN ---
Subjective Date of Service: 08/25/21 Primary Care Provider: Dr. Tejada Chief Complaint: Pneumonia Subjective: Other (Patient resting in bed. Now on room air.) Physical Examination - Vital Signs Temperature: 97.6 F Blood Pressure: 148/98 Pulse: 70 Respirations: 16 Pulse Ox (%): 92 Assessment & Plan Discharge Plan: Other ([facility] facility) Plan to discharge in: 48 Hours Physician Review Additional Text: COVID: Negative CT chest: No evidence of pulmonary embolism or/and significant thoracic aortic dissection. Probable atelectasis posterior segment left lower lobe with elevation of left hemidiaphragm Old granulomatous disease Coronary artery calcification and arthrosclerotic disease of the thoracic aorta. Initial CXR: COMPARISON: none FINDINGS: Mild left basilar atelectasis Lungs are mildly to moderately hyperaerated. The heart is normal size IMPRESSION: COPD Follow up CXR 08/24/2021: COMPARISON: Chest Single View dated 08/22/2021; Chest Single View dated 08/20/2021; Chest For Pe Angio dated 08/21/2021 FINDINGS: Lines: None. Lungs: Left basilar airspace disease which is similar to 08/22/2021. Pleural: No significant pleural effusions or pneumothorax. Cardiac: The heart size is within normal limits. Bones: No acute fractures. Other: Atherosclerosis. IMPRESSION: Similar mild left basilar airspace opacities compared with 08/22/2021. This may reflect atelectasis as opposed to pneumonia. Physical exam: General: Alert, In no apparent distress, Oriented x2. Patient resting in bed HEENT: Neck supple Respiratory: Breathing improved. Currently on room air Cardiovascular: Regular rate/rhythm, Normal S1 S2 Capillary refill: <2 Seconds Gastrointestinal: Normal bowel sounds, No tenderness Musculoskeletal: No tenderness Integumentary: No rashes Neurological: Normal speech, Normal strength at 5/5 x4 extr, Normal tone, Normal affect Lymphatics: No axilla or inguinal lymphadenopathy Assessment: Acute hypoxic respiratory failure with hypoxia likely COPD exacerbation with possible left lower lobe pneumonia complicated with recent history of Covid Diabetes type 2 with hyperglycemia Hypertension Tobacco abuse History of CVA Hyperlipidemia Fungal dermatitis Plan: Acute hypoxic respiratory failure with hypoxia likely COPD exacerbation with left lower lobe pneumonia and small pleural effusion left complicated with recent history of Covid: Patient continues to improve. Continue COPD treatmentprednisone, Brovana, albuterol/Atrovent. Will wean off prednisone. Continue Augmentin and lactobacillus. Patient has weaned off oxygen. Will discontinue Lasix. Continue physical therapy. Overall improved. and patient agree patient to be sent to skilled facility. Patient has chosen [facility]. Anticipate approval over the next 48 hours. Diabetes type 2 with hyperglycemia: Hemoglobin A1c 7.3. Patient appears to not take any medication at home. New medication includes metformin. Continue Metformin. Continue Accu-Cheks and sliding scale. Hypertension: Blood pressure improved. Increase lisinopril to 5 mg for better blood pressure control. Discontinue Lasix. Patient previously on amlodipine, carvedilol and lisinopril. Monitor and adjust medication Tobacco abuse: Continue to provide tobacco cessation. History of CVA: Continue aspirin and folic acid. Continue Lovenox. Hyperlipidemia: LDL 139: Continue Lipitor 10 mg daily Fungal dermatitis: Will continue with nystatin powder DVT PPX: Lovenox Code status: Full code Advance care planning-30 minutes: Patient and agree with skilled placement. Awaiting approval for [place] swing bed. This will likely occur in the next 48 hours. Time Spent Managing Pts Care (In Minutes): 55
[2021-08-25 06:23] LABS: BUN Blood Urea Nitrogen 15 mg/dL (7-18); Bicarbonate 28 mmol/L (21-32); Glucose Level 179 mg/dL (74-106); Magnesium 1.9 mg/dL (1.8-2.4); Potassium 4.3 mmol/L (3.5-5.1); Sodium Level 135 mmol/L (136-145)
[2021-08-25] MEDS: INSULIN -REGULAR HUMAN 50 UNIT/0.5 ML ML SQ SCH ×4 (07:30→20:10)
[2021-08-25] MEDS: NYSTATIN PWDR 100000 UNIT/GM TOP SCH ×2 (09:00→20:09)
[2021-08-25] MEDS ORDERED: lisinopriL 5 MG TAB PO SCH (09:00)
[2021-08-25] MEDS: LACTOBACILLUS/ACIDOPHILUS TAB PO SCH ×3 (09:15→20:09)
[2021-08-25] MEDS: METFORMIN HCL 500 MG TAB PO SCH ×2 (09:15→16:12)
[2021-08-25] MEDS: predniSONE 20 MG TAB PO SCH ×2 (09:15→20:09)
[2021-08-25] MEDS: AMOX/K CLAV 875 MG TAB PO SCH ×2 (09:15→20:09)
[2021-08-25] MEDS: FUROSEMIDE 20 MG TABLET PO SCH (09:15)
[2021-08-25] MEDS: JUVEN PACKET PO SCH ×2 (09:16→20:09)
[2021-08-25] MEDS: ARFORMOTEROL TARTRATE 15 MCG/2 ML VIAL.NEB NEB SCH ×2 (10:59→20:00)
--- NOTE | 2021-08-25 11:54 | RAD REPORT ---
EXAM DESCRIPTION: RAD - Elbow Left 2 View - 08/25/2021 11:48 am CLINICAL HISTORY: Left elbow pain COMPARISON: No comparisons FINDINGS: No acute fracture. No malalignment. No significant focal degenerative changes. IMPRESSION: No acute osseous abnormality involving the left elbow.
[2021-08-25] MEDS: ENOXAPARIN 40 MG/0.4 ML SQ SCH (16:12)
[2021-08-25] MEDS: IPRATROPIUM BROM 0.5MG/2.5ML NEB PRN (20:00)
[2021-08-25] MEDS: ATORVASTATIN 10 MG TAB PO SCH (20:09)
--- NOTE | 2021-08-26 05:50 | P.PN ---
Subjective Date of Service: 08/26/21 Primary Care Provider: Dr. Tejada Chief Complaint: Pneumonia Subjective: Improving, Doing well Physical Examination - Vital Signs Temperature: 97.8 F Blood Pressure: 161/69 Pulse: 84 Respirations: 16 Pulse Ox (%): 94 - Studies Microbiology Data (last 24 hrs): 08/21/21 00:56 Blood - Blood Aerobic Blood Culture - Final No growth in 5 days. 08/21/21 00:56 Blood - Blood Anaerobic Blood Culture - Final 08/20/21 23:46 Blood - Blood Aerobic Blood Culture - Final No growth in 5 days. 08/20/21 23:46 Blood - Blood Anaerobic Blood Culture - Final No growth in 5 days. Assessment & Plan [facility]: [facility] to [facility] in: 24 Hours Physician Review Additional Text: COVID: Negative CT chest: No evidence of pulmonary embolism or/and significant thoracic aortic dissection. Probable atelectasis posterior segment left lower lobe with elevation of left hemidiaphragm Old granulomatous disease Coronary artery calcification and arthrosclerotic disease of the thoracic aorta. Initial CXR: COMPARISON: none FINDINGS: Mild left basilar atelectasis Lungs are mildly to moderately hyperaerated. The heart is normal size IMPRESSION: COPD Follow up CXR 08/24/2021: COMPARISON: Chest Single View dated 08/22/2021; Chest Single View dated 08/20/2021; Chest For Pe Angio dated 08/21/2021 FINDINGS: Lines: None. Lungs: Left basilar airspace disease which is similar to 08/22/2021. Pleural: No significant pleural effusions or pneumothorax. Cardiac: The heart size is within normal limits. Bones: No acute fractures. Other: Atherosclerosis. IMPRESSION: Similar mild left basilar airspace opacities compared with 08/22/2021. This may reflect atelectasis as opposed to pneumonia. Physical exam: General: Alert, In no apparent distress, Oriented x2. Patient resting in bed HEENT: Neck supple Respiratory: Breathing improved. Currently on room air Cardiovascular: Regular rate/rhythm, Normal S1 S2 Capillary refill: <2 Seconds Gastrointestinal: Normal bowel sounds, No tenderness Musculoskeletal: No tenderness Integumentary: No rashes Neurological: Normal speech, Normal strength at 5/5 x4 extr, Normal tone, Normal affect Lymphatics: No axilla or inguinal lymphadenopathy Assessment: Acute hypoxic respiratory failure with hypoxia likely COPD exacerbation with possible left lower lobe pneumonia complicated with recent history of Covid Diabetes type 2 with hyperglycemia Hypertension Tobacco abuse History of CVA Hyperlipidemia Fungal dermatitis Plan: Acute hypoxic respiratory failure with hypoxia likely COPD exacerbation with left lower lobe pneumonia and small pleural effusion left complicated with recent history of Covid: Patient continues to improve. Continue COPD treatmentprednisone, Brovana, albuterol/Atrovent. Continue to wean off prednisone. Continue Augmentin and lactobacillus. Patient has weaned off oxygen. Continue physical therapy. Overall improved. and patient agree patient to be sent to skilled facility. Patient has chosen [facility]. Anticipate approval over the next 24 hours. I will turn the service over to the hospitalist team tomorrow. I will go plan of care with him. Diabetes type 2 with hyperglycemia: Hemoglobin A1c 7.3. Patient appears to not take any medication at home. New medication includes metformin. Continue Metformin. Continue Accu-Cheks and sliding scale. Hypertension: Blood pressure improved but still elevated. Will increase lisinopril to 10 mg daily. Continue to monitor and adjust medication. Patient previously on amlodipine, carvedilol and lisinopril. Monitor and adjust medication Tobacco abuse: Continue to provide tobacco cessation. History of CVA: Continue aspirin and folic acid. Continue Lovenox. Hyperlipidemia: LDL 139: Continue Lipitor 10 mg daily Fungal dermatitis: Will continue with nystatin powder DVT PPX: Lovenox Code status: Full code Advance care planning-30 minutes: Patient and agree with skilled placement. Awaiting approval for [place] swing bed. This will likely occur in the next 24 hours. Time Spent Managing Pts Care (In Minutes): 55
[2021-08-26 06:30] LABS: BUN Blood Urea Nitrogen 22 mg/dL (7-18); Bicarbonate 27 mmol/L (21-32); Glucose Level 186 mg/dL (74-106); Magnesium 1.9 mg/dL (1.8-2.4); Potassium 4.3 mmol/L (3.5-5.1); Sodium Level 134 mmol/L (136-145)
[2021-08-26] MEDS: INSULIN -REGULAR HUMAN 50 UNIT/0.5 ML ML SQ SCH ×4 (07:30→21:00)
[2021-08-26] MEDS: ARFORMOTEROL TARTRATE 15 MCG/2 ML VIAL.NEB NEB SCH ×2 (08:40→19:15)
[2021-08-26] MEDS: JUVEN PACKET PO SCH ×2 (09:00→21:33)
[2021-08-26] MEDS: METFORMIN HCL 500 MG TAB PO SCH ×2 (09:00→18:00)
[2021-08-26] MEDS: NYSTATIN PWDR 100000 UNIT/GM TOP SCH ×2 (09:00→21:00)
[2021-08-26] MEDS: FUROSEMIDE 20 MG TABLET PO SCH (10:00)
[2021-08-26] MEDS: predniSONE 20 MG TAB PO SCH ×2 (10:00→21:32)
[2021-08-26] MEDS: AMOX/K CLAV 875 MG TAB PO SCH ×2 (10:00→21:32)
[2021-08-26] MEDS: LACTOBACILLUS/ACIDOPHILUS TAB PO SCH ×3 (10:00→21:32)
[2021-08-26] MEDS: lisinopriL 5 MG TAB PO SCH ×2 (10:54→10:55)
[2021-08-26] MEDS: ENOXAPARIN 40 MG/0.4 ML SQ SCH (18:00)
[2021-08-26] MEDS: TRAMADOL HCL 50 MG TAB PO PRN (19:04)
[2021-08-26] MEDS: ATORVASTATIN 10 MG TAB PO SCH (21:32)
[2021-08-27] MEDS: INSULIN -REGULAR HUMAN 50 UNIT/0.5 ML ML SQ SCH ×4 (07:30→21:00)
[2021-08-27] MEDS: METFORMIN HCL 500 MG TAB PO SCH ×2 (08:00→17:00)
[2021-08-27] MEDS: ARFORMOTEROL TARTRATE 15 MCG/2 ML VIAL.NEB NEB SCH ×2 (08:09→19:15)
[2021-08-27] MEDS: AMOX/K CLAV 875 MG TAB PO SCH ×2 (08:48→21:29)
[2021-08-27] MEDS: FUROSEMIDE 20 MG TABLET PO SCH (08:50)
[2021-08-27] MEDS: predniSONE 20 MG TAB PO SCH ×2 (08:50→21:30)
[2021-08-27] MEDS: JUVEN PACKET PO SCH ×2 (08:50→21:30)
[2021-08-27] MEDS: LACTOBACILLUS/ACIDOPHILUS TAB PO SCH ×3 (08:55→21:29)
[2021-08-27] MEDS: NYSTATIN PWDR 100000 UNIT/GM TOP SCH ×2 (09:00→21:00)
[2021-08-27] MEDS: ENOXAPARIN 40 MG/0.4 ML SQ SCH (17:27)
[2021-08-27] MEDS: ATORVASTATIN 10 MG TAB PO SCH (21:30)
[2021-08-27] MEDS: TRAMADOL HCL 50 MG TAB PO PRN (21:33)
[2021-08-28 06:25] LABS: Urine Appearance CLEAR (Clear); Urine Bilirubin NEGATIVE (Negative); Urine Blood NEGATIVE (Negative); Urine Color YELLOW (Yellow); Urine Glucose NEGATIVE (Negative); Urine Protein NEGATIVE (Negative)
[2021-08-28 06:26] LABS: Urine Microscopic Reflex NO UMIC
[2021-08-28] MEDS: INSULIN -REGULAR HUMAN 50 UNIT/0.5 ML ML SQ SCH ×4 (07:30→23:16)
[2021-08-28] MEDS: METFORMIN HCL 500 MG TAB PO SCH ×2 (08:00→18:51)
[2021-08-28] MEDS: lisinopriL 5 MG TAB PO SCH (09:00)
[2021-08-28] MEDS: NYSTATIN PWDR 100000 UNIT/GM TOP SCH ×2 (09:00→21:00)
[2021-08-28] MEDS: LACTOBACILLUS/ACIDOPHILUS TAB PO SCH ×3 (09:17→20:49)
[2021-08-28] MEDS: FUROSEMIDE 20 MG TABLET PO SCH (09:17)
[2021-08-28] MEDS: predniSONE 20 MG TAB PO SCH ×2 (09:17→20:50)
[2021-08-28] MEDS: JUVEN PACKET PO SCH ×2 (09:17→20:50)
[2021-08-28] MEDS: AMOX/K CLAV 875 MG TAB PO SCH ×2 (09:17→20:49)
[2021-08-28] MEDS: ARFORMOTEROL TARTRATE 15 MCG/2 ML VIAL.NEB NEB SCH ×2 (09:20→19:40)
[2021-08-28] MEDS: ENOXAPARIN 40 MG/0.4 ML SQ SCH (18:00)
[2021-08-28] MEDS: IPRATROPIUM BROM 0.5MG/2.5ML NEB PRN (19:40)
[2021-08-28] MEDS: ATORVASTATIN 10 MG TAB PO SCH (20:50)
[2021-08-29] MEDS: INSULIN -REGULAR HUMAN 50 UNIT/0.5 ML ML SQ SCH ×4 (07:30→20:31)
[2021-08-29] MEDS: JUVEN PACKET PO SCH ×2 (09:00→20:32)
[2021-08-29] MEDS: ARFORMOTEROL TARTRATE 15 MCG/2 ML VIAL.NEB NEB SCH ×2 (09:09→19:40)
[2021-08-29] MEDS: lisinopriL 5 MG TAB PO SCH (09:37)
[2021-08-29] MEDS: METFORMIN HCL 500 MG TAB PO SCH ×2 (09:38→16:58)
[2021-08-29] MEDS: LACTOBACILLUS/ACIDOPHILUS TAB PO SCH ×3 (09:38→20:31)
[2021-08-29] MEDS: FUROSEMIDE 20 MG TABLET PO SCH (09:38)
[2021-08-29] MEDS: NYSTATIN PWDR 100000 UNIT/GM TOP SCH ×2 (09:38→20:31)
[2021-08-29] MEDS: predniSONE 20 MG TAB PO SCH ×2 (09:38→20:31)
[2021-08-29] MEDS: AMOX/K CLAV 875 MG TAB PO SCH ×2 (09:38→20:31)
--- NOTE | 2021-08-29 16:42 | P.PN ---
Subjective Date of Service: 08/27/21 Patient doing well no new complaints. Clinical symptoms are improving. Working with physical therapy. Review of Systems 10-point ROS is otherwise unremarkable Physical Examination - Vital Signs Temperature: 98.1 F Blood Pressure: 131/63 Pulse: 75 Respirations: 20 Pulse Ox (%): 93 - Physical Exam General: Alert, In no apparent distress, Oriented x3, Cachectic, Confused Neck: JVD not distended Respiratory: Diminished Cardiovascular: Regular rate/rhythm, Normal S1 S2, Systolic murmur Gastrointestinal: Normal bowel sounds, Soft and benign, Non-distended, No tenderness Musculoskeletal: No clubbing, No swelling, No tenderness Neurological: Sensation intact, Cranial nerves 3-12 intact - Studies Medications List Reviewed: Yes Assessment & Plan - Problems (Diagnosis) (1) Acute respiratory failure with hypoxia Current Visit: Yes Status: Acute (2) COPD with acute exacerbation Current Visit: Yes Status: Acute (3) History of COVID-19 Current Visit: Yes Status: Acute (4) Diabetes type 2, controlled Current Visit: Yes Status: Acute (5) Hypertension Current Visit: Yes Status: Acute (6) CAD (coronary artery disease) Current Visit: Yes Status: Acute (7) Cachexia Current Visit: Yes Status: Acute - Plan Plan: 1. Patient to continue COPD treatmentprednisone, Brovana, albuterol/Atrovent. 2. Continue to wean off prednisone. 3. Continue Augmentin and lactobacillus. 4. Patient has weaned off oxygen. 5. Continue physical therapy. 6. Transfer to [facility] swing bed once a bed is available 7. Continue Metformin. Continue Accu-Cheks and sliding scale. 8. Will increase lisinopril to 10 mg daily. Continue to monitor and adjust medication. 9. Patient previously on amlodipine, carvedilol and lisinopril. Monitor and adjust medication 10. Continue to provide tobacco cessation. 11. Continue aspirin and folic acid. Continue Lovenox. 12. Continue Lipitor 10 mg daily 13. Will continue with nystatin powder Discharge Plan: Home Plan to discharge in: Greater than 2 days - Advance Directives Does patient have a Living Will: No Does patient have a Durable POA for Healthcare: No - Code Status/Comfort Care Code Status Assessed: Yes Code Status: Full Code Critical Care: No Time Spent Managing PTS Care (In Minutes): 35
--- NOTE | 2021-08-29 16:51 | P.PN ---
Date of Service: 08/28/21 Subjective Patient is doing much better. Patient oxygenation is improved. Continue with nebs. Review of Systems 10-point ROS is otherwise unremarkable Physical Examination - Vital Signs Reviewed - Physical Exam General: Alert, In no apparent distress, Oriented x3, Cachectic, Confused Neck: JVD not distended Respiratory: Diminished Cardiovascular: Regular rate/rhythm, Normal S1 S2, Systolic murmur Gastrointestinal: Normal bowel sounds, Soft and benign, Non-distended, No tenderness Musculoskeletal: No clubbing, No swelling, No tenderness Neurological: Sensation intact, Cranial nerves 3-12 intact Assessment & Plan - Problems (Diagnosis) (1) Acute respiratory failure with hypoxia Current Visit: Yes Status: Acute (2) COPD with acute exacerbation Current Visit: Yes Status: Acute (3) History of COVID-19 Current Visit: Yes Status: Acute (4) Diabetes type 2, controlled Current Visit: Yes Status: Acute (5) Hypertension Current Visit: Yes Status: Acute (6) CAD (coronary artery disease) Current Visit: Yes Status: Acute (7) Cachexia Current Visit: Yes Status: Acute - Plan Continue with plan of care as mentioned below: 1. Patient to continue COPD treatmentprednisone, Brovana, albuterol/Atrovent. Continue with plan of care as mentioned below 2. Continue to wean off prednisone. 3. Continue Augmentin and lactobacillus. 4. Patient has weaned off oxygen. 5. Continue physical therapy. 6. Transfer to [facility] bed once a bed is available 7. Continue Metformin. Continue Accu-Cheks and sliding scale. 8. Will increase lisinopril to 10 mg daily. Continue to monitor and adjust medication. 9. Patient previously on amlodipine, carvedilol and lisinopril. Monitor and adj ust medication 10. Continue to provide tobacco cessation. 11. Continue aspirin and folic acid. Continue Lovenox. 12. Continue Lipitor 10 mg daily 13. Will continue with nystatin powder
[2021-08-29] MEDS: ENOXAPARIN 40 MG/0.4 ML SQ SCH (16:58)
[2021-08-29] MEDS: ACETAMINOPHEN 500 MG TAB PO PRN (19:20)
[2021-08-29] MEDS: ATORVASTATIN 10 MG TAB PO SCH (20:31)
[2021-08-30] MEDS: INSULIN -REGULAR HUMAN 50 UNIT/0.5 ML ML SQ SCH ×3 (07:30→16:30)
[2021-08-30] MEDS: JUVEN PACKET PO SCH (09:05)
[2021-08-30] MEDS: AMOX/K CLAV 875 MG TAB PO SCH (09:06)
[2021-08-30] MEDS: predniSONE 20 MG TAB PO SCH (09:06)
[2021-08-30] MEDS: FUROSEMIDE 20 MG TABLET PO SCH (09:06)
[2021-08-30] MEDS: METFORMIN HCL 500 MG TAB PO SCH ×2 (09:06→17:00)
[2021-08-30] MEDS: lisinopriL 5 MG TAB PO SCH (09:06)
[2021-08-30] MEDS: LACTOBACILLUS/ACIDOPHILUS TAB PO SCH ×2 (09:06→14:00)
[2021-08-30] MEDS: NYSTATIN PWDR 100000 UNIT/GM TOP SCH (09:07)
[2021-08-30] MEDS: ARFORMOTEROL TARTRATE 15 MCG/2 ML VIAL.NEB NEB SCH (09:15)
[2021-08-30 10:45] VITALS: O2SAT 95
[2021-08-30] MEDS: ACETAMINOPHEN 500 MG TAB PO PRN (13:01)
[2021-08-30] MEDS: ENOXAPARIN 40 MG/0.4 ML SQ SCH (17:00)
[2021-08-30 17:40] VITALS: BP 137/64; TEMP 97.5
--- NOTE | 2021-09-03 01:55 | P.PN ---
Date of Service: 08/29/21 Subjective Patient respiratory status continues to improve. Patient is feeling much better at this time. Review of Systems 10-point ROS is otherwise unremarkable Physical Examination - Vital Signs Reviewed - Physical Exam General: Alert, In no apparent distress, Oriented x3 Respiratory: Diminished Cardiovascular: Regular rate/rhythm, Normal S1 S2, Systolic murmur Gastrointestinal: Normal bowel sounds, Soft and benign, Non-distended, No tenderness Musculoskeletal: No clubbing, No swelling, No tenderness Neurological: Sensation intact, Cranial nerves 3-12 intact Assessment & Plan - Problems (Diagnosis) (1) Acute respiratory failure with hypoxia Current Visit: Yes Status: Acute (2) COPD with acute exacerbation Current Visit: Yes Status: Acute (3) History of COVID-19 Current Visit: Yes Status: Acute (4) Diabetes type 2, controlled Current Visit: Yes Status: Acute (5) Hypertension Current Visit: Yes Status: Acute (6) CAD (coronary artery disease) Current Visit: Yes Status: Acute (7) Cachexia Current Visit: Yes Status: Acute - Plan Continue with plan of care as mentioned below: 1. Patient to continue COPD treatmentprednisone, Brovana, albuterol/Atrovent. Continue with plan of care as mentioned below 2. Tapering dose of steroids 3. Continue Augmentin and lactobacillus. 4. Patient has weaned off oxygen. 5. Continue physical therapy. Arrange for outpatient physical therapy or correction facility placement 6. Transfer to [facility] once a bed is available 7. Continue Metformin. Continue Accu-Cheks and sliding scale. 8. Continue with strict blood pressure control 9. Patient previously on amlodipine, carvedilol and lisinopril. Monitor and adjust medication 10. Continue to provide tobacco cessation. 11. Continue aspirin and folic acid. Continue Lovenox. 12. Continue Lipitor 10 mg daily 13. Will continue with nystatin powder
--- NOTE | 2021-09-03 01:56 | P.DS ---
Discharge Date: 08/30/21 Primary Care Provider: Dr. Tejada Disposition: TRANSFER TO CORRECTION Discharge Condition: GOOD Reason for Admission: Pneumonia - Problems (1) Acute respiratory failure with hypoxia Status: Acute (2) COPD with acute exacerbation Status: Acute (3) History of COVID-19 Status: Acute (4) Diabetes type 2, controlled Status: Acute (5) Hypertension Status: Acute (6) CAD (coronary artery disease) Status: Acute (7) Cachexia Status: Acute Brief History of Present Illness: 76-year-old male with history of diabetes mellitus type 2,, COPD, history of CVA presents emergency department for shortness of breath. Family reports that patient was discharged from another [facility] approximately 10 days ago after being treated for Covid pneumonia, home medications reviewed include Eliquis as well as Levaquin. Patient is very appropriate poor historian and family not available for interview at this time, attempted to call as well but nobody answered. Patient arrived to the emergency department dyspneic, tachypneic and hypoxic with saturations in the mid 80s. Patient was placed on BiPAP and evaluated in the emergency department labs are significant for white blood cell count 18.9 with left shift glucose 252 C- reactive protein 7.15 BNP 639 Covid test is pending chest x-ray appears to demonstrate a right lower lobe pneumonia. Patient given IV Rocephin and Zithromax in the emergency department, this is believed to be more of a bacterial pneumonia than acute Covid, will admit for further evaluation and management. Hospital Course: Patient done well during hospital stay. Patient was diuresed and patient is clinically feeling much better. Patient has been working with physical therapy. [facility]. Vital Signs/Physical Exam: Temp Pulse Resp BP Pulse Ox 97.5 F 95 H 20 137/64 95 08/30/21 16:00 08/30/21 16:00 08/30/21 16:00 08/30/21 16:00 08/30/21 16:00 General: Alert, In no apparent distress, Oriented x3 Laboratory Data at Discharge: WBC 7.40 K/uL (4.3-10.9) D 08/24/21 06:06 Hgb 11.6 g/dL (13.6-17.9) L 08/24/21 06:06 Hct 35.0 % (39.6-49.0) L 08/24/21 06:06 Plt Count 275 K/uL (152-406) 08/24/21 06:06 PT 13.4 SECONDS (9.5-12.5) H 08/21/21 00:56 INR 1.16 08/21/21 00:56 APTT 30.6 SECONDS (24.3-36.9) 08/21/21 00:56 Sodium 134 mmol/L (136-145) L 08/26/21 05:44 Potassium 4.3 mmol/L (3.5-5.1) 08/26/21 05:44 BUN 22 mg/dL (7-18) H 08/26/21 05:44 Creatinine 0.45 mg/dL (0.55-1.3) L 08/26/21 05:44 Glucose 186 mg/dL (74-106) H 08/26/21 05:44 Magnesium 1.9 mg/dL (1.8-2.4) 08/26/21 05:44 Total Bilirubin 0.7 mg/dL (0.2-1.0) 08/24/21 06:06 AST 33 U/L (15-37) 08/24/21 06:06 ALT 45 U/L (12-78) 08/24/21 06:06 Alkaline Phosphatase 89 U/L (45-117) 08/24/21 06:06 Triglycerides 140 mg/dL (<150) 08/22/21 04:40 Cholesterol 206 mg/dL (<200) H 08/22/21 04:40 HDL Cholesterol 39 mg/dL (40-60) L 08/22/21 04:40 Cholesterol/HDL Ratio 5.28 08/22/21 04:40 Lipase 91 U/L (73-393) 08/21/21 00:56 Home Medications: Amlodipine [Norvasc*] 10 mg PO DAILY 08/21/21 Apixaban [Eliquis] 5 mg PO DAILY 08/21/21 Carvedilol [Coreg] 12.5 mg PO BID 08/21/21 Furosemide 40 mg PO DAILY 08/21/21 Lisinopril [Zestril] 10 mg PO DAILY 08/21/21 Potassium Chloride [Klor-Con M15] 15 meq PO DAILY 08/21/21 Acidophilus/Bulgaricus [Lactinex Packet] 1 each PO TID #90 gran.pack 08/30/21 Albuterol Neb [Proventil 0.083% Neb Soln] 2.5 mg NEB Q6HP PRN #60 amp 08/30/21 Amox/Clavulanate [Augmentin 875-125 Tab*] 875 mg PO BID #14 tab 08/30/21 Arformoterol Tartrate [Brovana] 15 mcg NEB BIDRESP #60 vial.neb 08/30/21 Atorvastatin Calcium [Lipitor*] 10 mg PO BEDTIME #30 tab 08/30/21 Enoxaparin Sodium [Lovenox 40 MG INJ*] 40 mg SQ DAILY 5 PM #14 syr 08/30/21 Ipratropium Neb [Atrovent*] 0.5 mg NEB [id number] PRN #60 amp 08/30/21 Alexis [Alexis*] 1 pkt PO BID #60 powd.pack 08/30/21 Metformin HCl [Glucophage*] 500 mg PO BIDWM #60 tab 08/30/21 Nystatin Powder [Mycostatin (Powder)*] 1 appl TOP BID #300 btl 08/30/21 lisinopriL [Prinivil*] 10 mg PO DAILY #30 tab 08/30/21 predniSONE [Prednisone*] 20 mg PO BID #20 tab 08/30/21 traMADol HCL [Ultram*] 50 mg PO Q6H PRN #30 tab 08/30/21 New Medications: Ipratropium Neb [Atrovent*] 0.5 mg NEB [id number] PRN #60 amp PRN Reason: Wheezing Amox/Clavulanate [Augmentin 875-125 Tab*] 875 mg PO BID #14 tab Arformoterol Tartrate [Brovana] 15 mcg NEB BIDRESP #60 vial.neb Metformin HCl [Glucophage*] 500 mg PO BIDWM #60 tab Alexis [Alexis*] 1 pkt PO BID #60 powd.pack Acidophilus/Bulgaricus [Lactinex Packet] 1 each PO TID #90 gran.pack Atorvastatin Calcium [Lipitor*] 10 mg PO BEDTIME #30 tab Enoxaparin Sodium [Lovenox 40 MG INJ*] 40 mg SQ DAILY 5 PM #14 syr Nystatin Powder [Mycostatin (Powder)*] 1 appl TOP BID #300 btl predniSONE [Prednisone*] 20 mg PO BID #20 tab lisinopriL [Prinivil*] 10 mg PO DAILY #30 tab Albuterol Neb [Proventil 0.083% Neb Soln] 2.5 mg NEB Q6HP PRN #60 amp PRN Reason: Shortness Of Breath traMADol HCL [Ultram*] 50 mg PO Q6H PRN #30 tab PRN Reason: Pain Scale 5-7 (Moderate) Physician Discharge Instructions: OK TO DC IV AND DC HOME FOLLOW-UP WITH PRIMARY CARE PROVIDER IN 1-2 WEEKS FOLLOW-UP WITH CARDIOLOGY IN 1-2 WEEKS RETURN TO THE ER IF symptoms worsen CALL or TEXT DR. GUERRERO AT [phone] IF ANY QUESTIONS REGARDING HOSPITAL STAY. PLEASE CALL THE FLOOR AT [phone] IF ANY MEDICATION OR NURSING QUESTIONS. Diet: AHA Activity: Fall precautions Followup: [facility] [Provider Group] NONE,NONE [Primary Care Provider] - Time spent managing pt's care (in minutes): 35
== END 2021-08-30 19:24 | DRG 193 ==
LOC: ER 23:19 → ERHOLD 08-21 01:41 → 2ND 08-21 03:05
PROVIDERS: ADMIT Family Medicine; ATTEND Family Medicine
PROC: 5A09357 Assistance with Respiratory Ventilation, Less than 24 Consecutive Hours, Continuous Positive Airway Pressure (ICD-10-PCS; principal; 2021-08-21)
DX: J15.9 Unspecified bacterial pneumonia (principal); L89.893 Pressure ulcer of other site, stage 3; J96.01 Acute respiratory failure with hypoxia; G92.9 Unspecified toxic encephalopathy; E44.0 Moderate protein-calorie malnutrition; R64 Cachexia; J44.0 Chronic obstructive pulmonary disease with (acute) lower respiratory infection; J44.1 Chronic obstructive pulmonary disease with (acute) exacerbation; L89.151 Pressure ulcer of sacral region, stage 1; Z68.24 Body mass index [BMI] 24.0-24.9, adult; I25.10 Atherosclerotic heart disease of native coronary artery without angina pectoris; E11.65 Type 2 diabetes mellitus with hyperglycemia; E78.5 Hyperlipidemia, unspecified; M25.512 Pain in left shoulder; B36.9 Superficial mycosis, unspecified; F17.210 Nicotine dependence, cigarettes, uncomplicated; Z86.16 Personal history of COVID-19; Z86.73 Personal history of transient ischemic attack (TIA), and cerebral infarction without residual deficits; Z20.822 Contact with and (suspected) exposure to COVID-19
CPT/HCPCS: 36415; 71045; 71275; 80048; 80053; 80061; 80076; 81003; 82550; 82553; 82805; 82947; 83036; 83605; 83690; 83735; 83880; 84145; 84439; 84443; 84484; 85025; 85379; 85610; 85730; 86140; 87040; 87324; 87449; 93005; 94010; 94660; 94760; 96361; 96365; 96375; 97110; 97112; 97161; 97530; 99285; J0456; J1650; J2270; J2920; J2930; J7040; J7050; J7512; J7605; J7606; Q9967; U0003